=== PATIENT | male | born 1980 | race Caucasian/White ===

== ENCOUNTER 2024-05-16 02:43 | Emergency (ER) | payer BC, SELFPAY ==
[2024-05-16 02:48] VITALS: BP 161/113; PULSE 93; RESP 18; TEMP 37.2; O2SAT 97; BMI 38.0
[2024-05-16 03:07] VITALS: TEMP 37.2
[2024-05-16] MEDS: KETOROLAC 10 MG TABLET PO (03:07)
--- NOTE | 2024-05-16 03:10 | ED_ITS ---
HPI - General Adult General Chief complaint: Chest Pain Stated complaint: Chest pain, arm pain Time Seen by Provider: 05/16/24 02:46 Source: patient Mode of arrival: ambulatory Limitations: no limitations History of Present Illness HPI narrative: 43-year-old male with no prior history of heart disease or tobacco use presents to the emergency department with left axillary pain for the past [address] to the hospital. No shortness of breath, dizziness. Pain radiates from the center of the left axilla a little bit to the neck. No trauma or injury but he was chopping wood about 24 hours ago prior to the pain starting. This is not a common activity for him. He works an office job typically. He does not regularly exercise. He does have a family history of coronary artery disease but not premature ages. He has no history of DVT or PE. He has not take any anticoagulants. He was concerned that the pain could be related to his heart. No palpitations. Did not try any interventions prior to coming to the ED. Reports that his past medical history is notable for depression and type 2 diabetes. Home meds BuSpar glipizide and venlafaxine confirms accurate. No known drug allergies. Nonsmoker. ROS notable for the pain as described above, otherwise denies times 12 systems. Related Data Home Medications ?Medication ?Instructions ?Recorded ?Confirmed buspirone 15 mg tablet 15 mg PO BID 05/16/24 05/16/24 glipizide 5 mg tablet, extended 5 mg PO DAILY 05/16/24 05/16/24 release 24 hr venlafaxine 75 mg capsule,extended 75 mg PO DAILY 05/16/24 05/16/24 release 24 hr Allergies Allergy/AdvReac Type Severity Reaction Status Date / Time No Known Allergies Allergy Mild Verified 05/16/24 02:51 [facility] Medical History (Updated 05/16/24 @ 04:25 by Lois Riggs MD) Diabetes type 2 ?E11.9 - Type 2 diabetes mellitus without complications (ICD-10) Social History Smoking Status: Never smoker Second hand tobacco smoke exposure: No How often do you have a drink containing alcohol: never AUDIT-C Alcohol total score: 0 Non-prescribed substance use: denies use Exam Const: Vital Signs, click to edit/add: Vital Signs - 24 hr 05/16/24 02:48 05/16/24 03:07 05/16/24 04:18 Temperature 98.9 F 98.9 F 98.9 F Pulse Rate [Pulse Oximeter] 93 Respiratory Rate 18 Blood Pressure [Ri ght Upper Arm] 161/113 H Pulse Oximetry 97 Oxygen Delivery Me thod Room Air Documenting provider has reviewed patient's vital signs: yes Common normals: alert General appearance: cooperative and well kempt HENMT: Common normals: normocephalic Head and scalp: normocephalic Face and sinus: normal facial exam Mouth: oral and palatal mucosa normal Eye: Common normals: conjunctivae normal General eye: normal appearance of both eyes Conjunctiva: conjunctiva(e) normal Neck & C-Spine: Common normals: full ROM, no lymphadenopathy and no meningeal signs Other: Significant chronic shoulder rounding and loss of cervical lordosis. No point bony tenderness to palpation of the cervical spine. No tenderness of the facet joints or reproduction of cervical radiculopathy with manipulation. Chest: Common normals: inspection of chest normal Resp: Common normals: normal respiratory effort, no use of accessory muscles and clear to auscultation bilaterally Effort & inspection: able to speak in complete sentences Auscultation: clear to auscultation bilaterally Cardio: Common normals: regular rate, regular rhythm, S1 normal heart sound, S2 normal heart sound and no murmurs Rate: regular rate Rhythm: regular rhythm Heart sounds: S1 normal and S2 normal Extremity: Common normals: normal to inspection, full ROM, normal capillary refill, no joint enlargement and no pedal edema Other: Shoulders with normal range of motion but with chronic internal rotation and forward positioning bilaterally. For cervical and shoulder posture. Palpation in the axilla specifically on the lawn just some miss tendinous insertions reproduces pain. There is no bruising, deformity or defect. Tenderness is mild on the left. No palpable mass in the axilla. No tenderness over the pectoralis tendon. Normal shoulder exam otherwise. Neuro: Sensorium/orientation: alert Meningeal signs: no meningeal signs Motor exam: strength 5/5 throughout and no movement abnormalities noted Psych: Common normals: thought process normal Appearance: well kempt Attitude: engaged Thought process: normal thought process Attention/concentration: attention grossly intact Memory/cognition: memory grossly intact Insight: insight good Judgement: judgment good Skin: Common normals: no rashes or lesions noted General skin exam: no rashes or lesions noted Course Course ED Course: 43-year-old male with focal axillary tenderness. Risk factors for heart disease including family history, elevated blood pressure and diabetes. Will obtain EK G, troponin and basic labs. Does not need serial troponins due to symptoms greater than 24 hours. They are also nonexertional and highly suspicious for musculoskeletal etiology. Differential diagnosis including arrhythmia, coronary artery disease, pulmonary embolism, shingles, lung contusion. More likely lung just MS strain acute on possibly chronic due to poor posture. Will watch on law tutor for at least an hour while we await lab findings. Will administer Toradol to see if this helps with his pain. Await findings. Elevated blood pressure but expect that this will come down with allowing the patient to rest and get more comfortable in the ED. will need primary care follow-up if not improved. Reevaluation(s) Time of Reevaluation #1: 04:26 Reevaluation #1: Patient had full resolution of symptoms with the Toradol. As discussed in the lab section, the lab provider had initially for gotten to give us a small sample to run our point of care troponin. He returned a small sample to us that appeared slightly hemolyzed and a very small volume. We did question if we should try to run the point care troponin and elected to start a serum sample as well. The point of care troponin was weakly positive but the serum level which was more appropriate appearing is negative. Patient had full resolution of symptoms on the Toradol, exam was suspicious for musculoskeletal etiology and the reassuring serum troponin is fitting with this picture. I do not think serial troponins as necessary and this was discussed with him as well. He is in agreement. We discussed his elevated blood sugar and blood pressure. Blood pressure is returning to normal with just rest, no other intervention. He would like to make dietary changes prior to further discussion of changes to his blood sugar regimen. This is reasonable. He is willing to follow up with his primary care provider regarding this and the elevated blood pressure. Recommended home monitoring. Discussed Tylenol and ibuprofen for the shoulder pain. Primary care follow-up for stress test if persistent symptoms. May benefit from some physical therapy due to chronic shoulder and neck rounding. Alarm symptoms of coronary artery disease were reviewed with patient. Extensive written instructions provided. He verbalizes understanding and agreement. Vital Signs Vital signs: Initial Vital Signs Temperature 98.9 F 05/16/24 02:48 Temperature Source Temporal Artery Scan 05/16/24 02:48 Pulse Rate 93 05/16/24 02:48 Respiratory Rate 18 05/16/24 02:48 Blood Pressure 161/113 H 05/16/24 02:48 Blood Pressure Mean 129 H 05/16/24 02:48 Blood Pressure Position Sitting 05/16/24 02:48 Pulse Oximetry 97 05/16/24 02:48 Oxygen Delivery Method Room Air 05/16/24 02:48 Vital Signs Temperature 98.9 F 05/16/24 02:48 Pulse Rate 93 05/16/24 02:48 Respiratory Rate 18 05/16/24 02:48 Blood Pressure 161/113 H 05/16/24 02:48 Pulse Oximetry 97 05/16/24 02:48 Oxygen Delivery Method Room Air 05/16/24 02:48 Temperature 98.9 F 05/16/24 04:18 Pulse Rate 93 05/16/24 02:48 Respiratory Rate 18 05/16/24 02:48 Blood Pressure 161/113 H 05/16/24 02:48 Pulse Oximetry 97 05/16/24 02:48 Oxygen Delivery Method Room Air 05/16/24 02:48 Medications Administered Medications: Generic Name Dose Route Start Last Admin Trade Name Freq PRN Reason Stop Dose Admin Ketorolac Tromethamine 10 mg 05/16/24 03:03 05/16/24 03:07 Ketorolac 10 Mg Tablet PO 05/16/24 03:04 10 mg ONCE ONE Administration Medical Decision Making Lab Data Lab results reviewed: Yes I reviewed the patient's lab results Lab results narrative: The point of care troponin was in a very small vial that appeared hemolyzed. We honestly questioned if we should even run it and elected to run a serum as well. The point of care troponin is mildly positive but the serum level which did not appear hemolyzed is normal Labs: Lab Results 05/16/24 05/16/24 Range/Units 03:17 03:20 WBC 8.27 (4.50-11.00) K/uL RBC 5.40 (4.30-5.90) m/uL Hgb 16.6 (13.5-17.5) gm/dL Hct 46.5 (37.0-53.0) % MCV 86 (80-100) fL MCH 31 (26-34) pg MCHC 36 (32-36) gm/dL RDW Coeff of Rizwan 12.1 (11.5-15.5) % Plt Count 231 (140-440) K/uL Neut % (Auto) 50.3 (42.0-72.0) % Lymph % (Auto) 38.3 (20-44) % Tama % (Auto) 8.7 (0.0-11.0) % Eos % (Auto) 1.9 (0.0-7.0) % Baso % (Auto) 0.6 (0.0-3.0) % Neut # (Auto) 4.15 (1.7-7.0) K/uL Lymph # (Auto) 3.17 H (0.90-2.90) K/uL Tama # (Auto) 0.70 (0.00-0.90) K/UL Eos # (Auto) 0.16 (0.00-0.50) K/uL Baso # (Auto) 0.05 (0.00-0.30) K/uL Abs Immat Gran (auto) 0.02 (0.00-0.30) K/uL Imm/Tot Granulo (auto) 0.2 % Sodium 139 (135-149) mmol/L Potassium 4.4 (3.6-5.1) mmol/L Chloride 104 (96-114) mmol/L Carbon Dioxide 23 (20-32) mmol/L Anion Gap 12 (7-15) mEq/L BUN 19 (5-24) mg/dL Creatinine 0.9 (0.5-1.5) mg/dL Estimated Creat Clear 104.50 Estimated GFR 110 ml/min Glucose 251 H (60-115) mg/dL Calcium 9.5 (8.4-10.6) mg/dL Troponin I < 0.01 L (0.01-0.04) ng/mL POC Troponin I 0.12 H (0.01-0.04) ng/ml ECG Data Attestation: I personally reviewed and interpreted this ECG as follows: Prior ECG tracings: not available for review Interpretation: Sinus rhythm, rate of 85. Normal axis and intervals. No significant ST or T- wave abnormalities. Normal EKG. Discharge Plan Discharge Clinical Impression: Strain of latissimus dorsi muscle, Chest pain, non-cardiac Patient Disposition: Home, Self-Care Condition: Improved Instructions: Muscle Strain (DC) Additional Instructions: As we discussed, I think that your pain is from a strain of the upper back muscles that insert into the armpit. It would make sense that you strained this or had all small micro tear with your increased activity. There are no evidence of any serious tear or any problems with the heart today. Your blood sugar was a little high. I do recommend that you eat a little more strictly and consider going on a low-dose of the extended release metformin. You should talk about that with your primary care doctor. Your blood pressure was slightly elevated. I suspect this was just from being in the ED. I would like for you to check this twice weekly. If you are consistently running over 130, you should make a follow-up appointment with your primary care doctor specifically do discuss the high blood pressure. For the pain, I recommend Tylenol 1000 mg every 6 hours and or ibuprofen 600 mg every 6 hours. This should improve gradually over the next few weeks. You do have some chronic rounding of the shoulders and loss of the typical curvature in the neck. This can be from old injuries but can also be from poor posture associated with office based work. If you are motivated to do so, I do think he would benefit from physical therapy to prevent further problems down the road. Remember that you are at risk of heart disease because of diabetes and family history. If you have exertional chest pain, exercise intolerance, significant exertional shortness of breath, or other worrisome symptoms, you should return to an emergency department. If you continue to have mild symptoms, an outpatient stress test should be arranged by your primary care provider. Activity Level: No Restrictions Discharge Diet: Regular Prescriptions: No Action venlafaxine 75 mg capsule,extended release 24hr 75 mg PO DAILY glipizide 5 mg tablet extended release 24hr 5 mg PO DAILY buspirone 15 mg tablet 15 mg PO BID Follow Up/Referrals: Maribel Cat PA-C [Primary Care Provider] - Stand Alone Forms: [employer] Info Instructions
--- OUTSIDE RECORDS SUMMARY | 2024-05-16 03:13 | XMS_ITS | Clinical Summary ---
Author Organization [employer] [facility] Address [place], [place] [address] Care Team Providers Care Sap Bw Developer Name Role Phone Maribel Cat Primary Care Provider [phone] Allergies Active Allergy Reactions Criticality Noted Date Comments Escitalopram Rash 06/07/2015 Medications Medication Sig Dispensed Refills Start Date End Date Status busPIRone (BUSPAR) 15 mg tabletIndications:S ocial phobia,MICHELLE (generalized anxiety disorder) Take 1 Tablet (15 mg) by mouth two times daily. 180 Tablet 3 08/22/2023 Active venlafaxine (EFFEXOR XR) 75 mg cp24 Extended-Release capsuleIndications: Social phobia,MICHELLE (generalized anxiety disorder) Take 1 Capsule (75 mg) by mouth once daily with a meal. 90 Capsule 3 08/22/2023 Active Blood-Glucose MeterIndications:Ty pe 2 diabetes mellitus without complication, without long-term current use of insulin (HC) Dispense meter, test strips, and lancets covered by pts insurance. 1 Each 09/03/2023 Active ketoconazole 2 % creamIndications:Ti jus manus,Tinea pedis of both feet Apply topically to affected area(s) two times daily. 60 g 2 09/03/2023 Active triamcinolone 0.1 % ointmentIndications :Dermatitis Apply topically to affected area(s) two times daily. 30 g 2 09/03/2023 Active lancets (Microlet Lancet) Test 2 times daily 100 Each 09/03/2023 Active glipiZIDE extended-release (GLUCOTROL XL) 5 mg Extended-Release tabletIndications:T ype 2 diabetes mellitus without complication, without long-term current use of insulin (HC) Take 1 Tablet (5 mg) by mouth once daily before a meal. 90 Tablet 1 09/20/2023 Active CPAPIndications:ARELIS (obstructive sleep apnea) Resmed CPAP machine for home use at pressure 5-15 cmw, CPAP mask- mask of choice, fit to comfort one per 3 months 1 Each 11 09/26/2023 Active blood sugar diagnostic (Contour Next Test Strips) stripIndications:Ty pe 2 diabetes mellitus without complication, without long-term current use of insulin (HC) Test twice daily 200 Each 5 10/03/2023 Active Active Problems Problem Noted Date Diagnosed Date ARELIS 09/04/2023 AHI- 11 positional 09/26/2023 Type 2 diabetes mellitus wit hout complication, without long-term current use of insulin 09/05/2023 Irritable bowel syndrome with diarrhea Tubular adenoma 01/26/2021 Overview (01/30/2021): Repeat colonoscopy in 5 years;Tubular adenoma consistent with advanced adenoma due to size, 10 mm; Negative for high grade dysplasia and malignancy Hypertriglyceridemia 09/10/2016 Elevated blood pressure 07/08/2015 MDD (major depressive disord er), recurrent episode, moderate 07/08/2015 MICHELLE (generalized anxiety disorder) 07/08/2015 Social phobia 03/03/2008 Resolved Problems Problem Noted Date Diagnosed Date Resolved Date Alcoholism 12/24/2008 11/25/2023 Adjustment disorder with depressed mood 12/24/2008 07/08/2015 Anxiety state, unspecified 03/03/2008 0 07/08/2015 Diarrhea 01/27/2021 Immunizations Name Administration Dates Next Due DTaP 05/28/1984,10/24/1983 MMR 10/02/1997,10/02/1994,05/28/1984 Polio Virus, Unspecified 05/28/1984,10/24/1983 Td (Age >=7 Years) 01/18/1998 Tdap 08/22/2023,07/27/2011 Family History Medical History Relation Name Comments Good Health Father Diabetes Mother Relation Name Status Comments Father Alive Mother Alive Social History Tobacco Use Types Packs/Day Years Used Date Smoking Tobacco: Former Cigarettes Q uit: 05/08/2003 Smokeless Tobacco: Never Tobacco Cessation:Counseling Given: Not Answered Comments:Quit 2002 Alcohol Use Standard Drinks/Week Comments Yes 0 (1 standard drink = 0.6 oz pur e alcohol) weekends PHQ-2 Answer Date Recorded PHQ-2 TOTAL SCORE 4 08/22/2023 Social Connections Answer Date Recorded Do you often feel lonely or isolated from those around you? 0 11/21/2023 Financial Resource Strain Answer Date R ecorded Difficulty of Paying Living Expenses 3 11/21/2023 Difficulty of Paying Living Expenses Not on file 11/21/2023 Food Insecurity Answer Date Recorded Do you worry your food will run out before you are able to buy more? 1 11/21/2023 Transportation Needs Answer Date Record ed Does lack of transportation keep you from medica l appointments? 1 11/21/2023 Does lack of transportation keep you from work, meetings or getting things that you need? 1 11/21/2023 Housing Stability Answer Date Recorded What is your housing situation today? 1 11/21/2023 Sex and Gender Information Value Date Recorded Sex Assigned at Not on file Gender Identity Not on file Sexual Orientation Not on file Obstetrics History Last Filed Vital Signs Vital Sign Reading Time Taken Comments Blood Pressure 144/90 11/21/2023 3:06 PM CDT Pulse 66 11/21/2023 3:06 PM CDT Temperature 36.6 C (97.8 F) 03/22/2022 5:40 PM CDT Respiratory Rate 14 03/22/2022 5:40 PM CDT Oxygen Saturation 98% 11/21/2023 3:06 PM CDT Inhaled Oxygen Concentration - - Weight 110.7 kg (244 lb) 11/21/2023 3:06 PM CDT Height 175.5 cm (5' 9.09) 09/03/2023 8:31 AM CD T Body Mass Index 35.93 09/03/2023 8:31 AM CDT Plan of Treatment Health Maintenance Due Date Last Done Comments Pneumococcal series for age 6-64 (1 of 2 - PCV) 1988 Hepatitis B series for Diabe mesha (1 of 3 - 19+ 3-dose series) 2001 COVID-19 vaccine series (2023- season) 2024 Influenza for age 9-49 02/16/2024 Depression screening for age 12+ 08/21/2024 08/22/2023, 12/15/2020, 12/14/2020, Additional history exists BMI (ht and wt on same day) for age 18+ 09/02/2024 09/03/2023, 08/22/2023, 03/19/2019, Additional history exists Colonoscopy through age 75 01/26/2026 01/26/2021 Lipids for age 35-44 08/21/2028 08/22/2023, 09/07/2016, 09/07/2016 Tetanus booster 08/21/2033 08/22/2023, 07/18, 07/27/2011, Additional history exists HIV for age 15-65 Completed 09/07/2016 Hepatitis C screening for ag e 18-79 Completed 12/14/2020, 09/07/2016, 05/27/2009, Additional history exists Tdap Completed 08/22/2023, 07/27/2011 Procedures Procedure Name Priority Date/Time Associated Diagnosis Comments LIPID PANEL Routine 08/22/2023 10:46 AM [employer] Screening cholesterol level COLONOSCOPY 01/26/2021 8:15 AM CDT ANTI HCV Add On 12/14/2020 10:22 AM CDT Elevated liver enzymes ANTI HIV 1/2 Routine 09/07/2016 8:35 AM CDT Screen for STD (sexually transmitted disease) from Last 3 Months or Most Recently Relevant to Health Maintenance Results * (ABNORMAL) LIPID PANEL (08/22/2023 10:46 AM [employer]) CHOLESTEROL,TOTAL 281(H) 100 - 199 mg/dL 08/22/2023 10:03 PM [employer] [facility] Comment: Cholesterol, Total Reference Ranges Desirable <200 mg/dL Borderline 200-239 mg/dL High >=240 mg/dL TRIGLYCERIDES 1,313(H) <150 mg/dL 08/22/2023 10:03 PM [employer] [facility] HDL CHOLESTEROL 10:03 PM [facility] Comment:Invalid HDL when Tri g >1300. NON-HDL CHOLESTEROL 08/22/2023 10:03 PM [employer] [facility] Comment:Invalid Non-HDL Chol esterol when Trig >1300. CHOL/HDL RATIO 08/22/2023 10:03 PM [employer] [facility] Comment:Invalid Chol/HDL Rat io when Trig >1300. LDL CHOLESTEROL 10:03 PM [employer] [facility] Comment:Invalid LDL when Tri g >1300. VLDL CHOLESTEROL COMMENT 08/22/2023 10:03 PM [employer] [facility] Comment:Unable to calculate VLDL. PROVIDER ORDERED STATUS RANDOM 08/22/2023 10:03 PM [facility] Blood BLOOD SPECIMEN / Unknown Venipuncture / Unknown 08/22/2023 10:46 AM [employer] 08/22/2023 10:49 AM [employer] Maribel ROSADO CHEMISTRY [facility] [address] [place] [address], * COLONOSCOPY (01/26/2021 8:15 AM CDT) 01/26/2021 8:15 AM CDT Narrative Transcriptions Aravind Whelan MD - 01/26/2021 9:08 AM CDT Patient Name: Ronak Patino Procedure Date: 01/26/2021 Gender: Male Date of : 1980 Admit Type: Ambulatory Procedure: Colonoscopy Proceduralist: Aravind Mejias One Indications/Pre-Op Diagnosis: Chronic diarrhea, Clinically significant diarrhea of unexplained origin Medications: Monitored Anesthesia Care, GeneralAnesthesia Procedure Description: The patient had risks, benefits and alternatives explained to andgave informed consent. The patient had a stable cardiopulmonary status and judged an adequate candidate for conscious sedation. The colonoscope was passed through the anus and advanced to 10 cminto the ileum. The colonoscopy was performed without difficulty. Thepatient tolerated the procedure well. The quality of the bowel preparationwas good. The terminal ileum, ileocecal valve, appendiceal orifice, and rectum were photographed. Complications: No immediate complications. Estimated Blood Loss & Specimen: Estimated blood loss: none. Specimen collected - Yes and sent to Laboratory Findings: The perianal and digital rectal examinations were normal. Normal mucosa was found in the entire colon. Biopsies for histologywere taken with a cold forceps from the cecum, ascending colon, transverse colon, descending colon and sigmoid colon for evaluation ofmicroscopic colitis. A 10 mm polyp was found in the mid sigmoid colon. The polyp wassessile. The polyp was removed with a hot snare. Resection and retrieval were complete. The retroflexed view of the distal rectum and anal verge was normaland showed no anal or rectal abnormalities. Impressions/Post-Op Diagnosis: - Normal mucosa in the entire examined colon. Biopsied. - One 10 mm polyp in the mid sigmoid colon, removed with a hot snare. Resected and retrieved. Recommendation: - Discharge patient to home. - Resume previous diet. - Continue present medications. - Await pathology results. - Repeat colonoscopy in 5 years for surveillance. Moderate Sedation: See the other procedure note for documentation of moderate sedationwith intraservice time. Aravind Whelan, 01/26/2021 9:08:20 AM This report has been signed electronically. Note Initiated On: 01/26/2021 8:15 AM Aravind Whelan MD PROCEDURE ORD * ANTI HCV (12/14/2020 10:22 AM CDT) HEPATITIS C ANTIBODY Non-React mayra Non-React mayra 12/16/2020 3:55 PM CDT [facility] Comment:Antibodies to HCV no t detected; does not exclude the possibility of exposure to HCV. Blood BLOOD SPECIMEN / Unknown Venipuncture / Unknown 12/14/2020 10:22 AM CDT 12/14/2020 10:23 AM CDT Maribel ROSADO [facility] [address] [place] [address], [place] * ANTI HIV 1/2 (09/07/2016 8:35 AM CDT) Pathologist [facility] HIV-1/HIV-2 ANTIBODY Non-Reacti ve Non-Reacti ve 09/07/2016 4:31 PM CDT [facility] Blood BLOOD SPECIMEN / Unknown Venipuncture / Unknown 09/07/2016 8:35 AM CDT 09/07/2016 8:38 AM CDT [facility]ative [facility] - 09/07/2016 4:31 PM CDT HIV-1 p24 and HIV-1/HIV-2 Ab not detected Maribel ROSADO [facility] [address] [place] [address], [place] from Last 3 Months or Most Recently Relevant to Health Maintenance Advance Directives * Full Code (Latest Code Status on File) Date Activated Date Inactivated Comments 01/26/2021 7:44 AM 01/26/2021 11:33 AM Question Answer Comments Code Status Discussion: Per Existing Order Care Teams Sap Bw Developer Relationship Specialty Start Date End Date Maribel Cat PA [address] [place] [address] PCP - General Physician Transformation Coach 08/21/23
[2024-05-16 03:24] LABS: Basophils Absolute Auto 0.05 K/uL (0.00-0.30); Basophils Percent Auto 0.6 % (0.0-3.0); Eosinophils Absolute Auto 0.16 K/uL (0.00-0.50); Eosinophils Percent Auto 1.9 % (0.0-7.0); Hematocrit 46.5 % (37.0-53.0); Hemoglobin* 16.6 gm/dL (13.5-17.5); Immature Granulocytes Abs Auto 0.02 K/uL (0.00-0.30); Immature Granulocytes Pct Auto 0.2 %; Lymphocytes Absolute Auto 3.17 K/uL (0.90-2.90); Lymphocytes Percent Auto 38.3 % (20-44); Mean Corpuscular HGB Conc 36 gm/dL (32-36); Mean Corpuscular Hemoglobin 31 pg (26-34); Mean Corpuscular Volume 86 fL (80-100); Monocytes Percent Auto 8.7 % (0.0-11.0); Neutrophils Absolute Auto 4.15 K/uL (1.7-7.0); Neutrophils Percent Auto 50.3 % (42.0-72.0); Platelet Count* 231 K/uL (140-440); RDW Coefficient of Variation % 12.1 % (11.5-15.5); White Blood Count* 8.27 K/uL (4.50-11.00)
[2024-05-16 03:30] LABS: Slide Review Reflex No
[2024-05-16 03:38] LABS: Chloride* 104 mmol/L (96-114); Potassium* 4.4 mmol/L (3.6-5.1); Sodium* 139 mmol/L (135-149)
[2024-05-16 03:41] LABS: Anion Gap 12 mEq/L (7-15); Carbon Dioxide* 23 mmol/L (20-32); Creatinine* 0.9 mg/dL (0.5-1.5); Estimated Glomerular Filt Rate 110 ml/min
[2024-05-16 03:42] LABS: Blood Urea Nitrogen* 19 mg/dL (5-24); Calcium* 9.5 mg/dL (8.4-10.6); Glucose* 251 mg/dL (60-115)
[2024-05-16 03:49] LABS: Troponin, Point-of-Care* 0.12 ng/ml (0.01-0.04)
[2024-05-16 04:00] VITALS: BP 149/99; PULSE 83; RESP 18; TEMP 37.2; O2SAT 97
[2024-05-16 04:13] LABS: Troponin I* < 0.01 ng/mL (0.01-0.04)
[2024-05-16 04:18] VITALS: TEMP 37.2
== END 2024-05-16 04:40 | disposition home or self-care (01) ==
PROVIDERS: Emergency Provider Family Medicine; PCP Physician Assistant
DX: S29.011A Strain of muscle and tendon of front wall of thorax, initial encounter (principal); R07.89 Other chest pain
CPT/HCPCS: 36415; 80048; 84484; 85025; 93005; 99284; A9270